=== PATIENT | male | born 1950 | race Two or more races ===

== ENCOUNTER 2022-05-02 06:42 | Day surgery (SDC) | payer OTHER ==
[~2022-05-02] VITALS: Ht 172.7 cm; Wt 106.1 kg
[~2022-05-02 06:42] MED LIST: ASPI-378 PO; ATO40T PO; CHLO25TA2 PO; GLIP5TAB12 PO; TAMS0.4C36 PO
[2022-05-02] MEDS ORDERED: IODIXANOL 320MG/ML 100ML BTL IV ONE (07:20)
[2022-05-02] MEDS ORDERED: LIDOCAINE 2%HCL (LOCAL ANESTH.) INJ 10ml MDV ONE (08:57)
[2022-05-02] MEDS ORDERED: VERAPAMIL 2.5MG/ML INJ 2ML VIAL IV ONE (08:58)
[2022-05-02] MEDS ORDERED: ANGIOMAX 250 MG VIAL IV ONE (08:58)
[2022-05-02] MEDS ORDERED: HEPARIN SODIUM (PORCINE) 5000 UNITS/ML 1ML VIAL ONE (08:58)
[2022-05-02] MEDS ORDERED: fentaNYL CITRATE 100 MCG/2 ML VL ONE (08:59)
[2022-05-02] MEDS ORDERED: SODIUM CHL 0.9% 0 ML ONE (08:59)
[2022-05-02] MEDS ORDERED: MIDAZOLAM HCL 2MG/2ML 2ml VIAL (1mg/ml) ONE (08:59)
== END 2022-05-02 11:51 | disposition home or self-care (01) ==
LOC: CATH 06:42
PROVIDERS: ATTEND Internal Medicine
DX: R94.39 Abnormal result of other cardiovascular function study (principal); I25.118 Atherosclerotic heart disease of native coronary artery with other forms of angina pectoris; E78.5 Hyperlipidemia, unspecified; F17.290 Nicotine dependence, other tobacco product, uncomplicated; E11.9 Type 2 diabetes mellitus without complications; Z20.822 Contact with and (suspected) exposure to COVID-19; Z82.49 Family history of ischemic heart disease and other diseases of the circulatory system; Z79.82 Long term (current) use of aspirin
CPT/HCPCS: 93458; C1887; C1894; J1644; J2001; J2250; J3010; Q9967; U0003; 99152